=== PATIENT | male | born 1950 | race Caucasian/White ===

== ENCOUNTER 2022-02-20 07:04 | Day surgery (SDC) | payer MEDICARE, MEDICAID ==
[2022-02-20] VITALS (7 sets, daily range): BP systolic 115–137; BP diastolic 64–93
[~2022-02-20] VITALS: Ht 172.7 cm; Wt 71.9 kg
[2022-02-20] MEDS ORDERED: PREG225C7 PO (08:04)
[2022-02-20] MEDS ORDERED: OMEP20TA23 PO (08:04)
[2022-02-20] MEDS ORDERED: METO5TAB98 PO (08:04)
[2022-02-20 08:39] LABS: BASOPHILS % (AUTO) 0.4 % (0-1); EOSINOPHILS # (AUTO) 0.1 X10'3 (0-0.9); EOSINOPHILS % (AUTO) 1.3 % (0-6); HEMATOCRIT 38.7 % (42.0-52.0); HEMOGLOBIN 13.3 g/dl (14.0-17.9); LYMPHOCYTES # (AUTO) 0.5 X10'3 (1.1-4.8); LYMPHOCYTES % (AUTO) 8.5 % (21-51); MEAN CORPUSCULAR HEMOGLOBIN 31.7 PG (27.0-31.0); MEAN CORPUSCULAR HGB CONC 34.4 g/dL (33.0-36.5); MEAN CORPUSCULAR VOLUME 92.2 FL (78-98); MEAN PLATELET VOLUME 9.2 FL (7.4-10.4); MONOCYTES # (AUTO) 0.2 X10'3 (0-0.9); MONOCYTES % (AUTO) 3.6 % (2-12); NEUTROPHILS # (AUTO) 4.9 X10'3 (1.8-7.7); NEUTROPHILS % (AUTO) 86.2 % (42-75); PLATELET COUNT 206 X10'3 (140-440); RED CELL DISTRIBUTION WIDTH 15.6 % (11.5-14.5); WHITE BLOOD COUNT 5.7 X10'3 (4.5-11.0)
[2022-02-20] MEDS ORDERED: LIDOcaine 1% W/epiNEPHrine 1:100,000 20ml vial ONE (09:56)
[2022-02-20] MEDS ORDERED: midazolam 1 mg/ML 2ml injection ONE (09:56)
[2022-02-20] MEDS ORDERED: heparin sodium, porcine/PF 100unit/ml 5ML syringe ONE (09:56)
[2022-02-20] MEDS ORDERED: fentaNYL/PF 50MCG/1 ML 2ML syringe ONE (09:56)
[2022-02-20] MEDS ORDERED: glucagon, human recombinant 1mg kit ONE (10:39)
[2022-02-20] MEDS ORDERED: cefazolin/dext.iso 2gm/100ml 100 ML IV ONE (10:40)
[2022-02-20] MEDS ORDERED: IOPAMIDOL 10 ML VIAL IT ONE (11:20)
== END 2022-02-20 14:30 | disposition home or self-care (01) ==
LOC: SSTAY O 07:04
PROVIDERS: ATTEND Preventive Medicine Aerospace Medicine
DX: C15.4 Malignant neoplasm of middle third of esophagus (principal); Z79.01 Long term (current) use of anticoagulants
CPT/HCPCS: 36415; 36561; 49440; 76937; 77001; 85025; 85610; 87811; 99152; 99153; C1769; C1788; C1894; J1610; J1642; J2250; J3010; J3490; J7030; Q9966; A4620; A6258